=== PATIENT | female | born 1995 | race Two or more races ===

== ENCOUNTER 2023-03-16 16:51 | Emergency (ER) | payer OTHER ==
[2023-03-16 17:09] VITALS: BP 113/74; PULSE 70; RESP 18; TEMP 98.2; BMI 28.3
[2023-03-16] MEDS ORDERED: SULFAMETHOXAZOLE/TRIMETHOPRIM 800MG/160MG D.S. TABLET PO ONE (18:31)
[2023-03-16] MEDS ORDERED: DEXAMETHASONE SOD PHOSPHATE 10 MG/1 ML VIAL PO ONE (18:31)
[2023-03-16] MEDS ORDERED: SULFAMETHOXAZOLE/TRIMETHOPRIM 800MG/160MG D.S. TABLET ONE (18:47)
[2023-03-16] MEDS ORDERED: DEXAMETHASONE SOD PHOSPHATE 10 MG/1 ML VIAL ONE (18:47)
== END 2023-03-16 19:07 | disposition home or self-care (01) ==
LOC: JERFT 16:51 → JER 16:51 → EDBD 16:51 → JERFT 19:07
DX: R21 Rash and other nonspecific skin eruption (principal); L29.9 Pruritus, unspecified; L73.9 Follicular disorder, unspecified
CPT/HCPCS: 99283-25